=== PATIENT | female | born 1980 | race African-American/Black ===

== ENCOUNTER 2019-12-16 09:04 | Emergency (ER) | payer BC ==
[~2019-12-16] VITALS: Ht 170.2 cm; Wt 120.0 kg
--- NOTE | 2019-12-16 10:37 | PHYS DOC ---
Past Medical History Past Medical History: Hypertension, Other Additional Past Medical Histor: lupus Past Surgical History: Tubal ligation Smoking Status: Current Every Day Smoker Alcohol Use: Occasionally General Adult EDM: Chief Complaint: ELBOW PROBLEM HPI: HPI: 39-year-old female presenting to the emergency department today with right elbow pain. Pain is been present for about 24 to 48 hours. No recent traumatic injury. The pain is a throbbing moderate pain without alleviating factors. ROS is neg for fevers chills. Negative for nausea vomiting. All other review of systems negative. ED course: 39-year-old female presenting with right elbow pain. X-ray obtained. X-ray shows small effusion. CBC shows minimal nonspecific leukocytosis at 12.3. I attempted a joint aspiration however was unable to obtain synovial fluid for analysis. I spoke with our orthopedic surgeon, the patient's pain is primarily at the bursa with some redness around the bursa, most likely diagnosis is bursitis. We will give the patient oral Keflex and arrange short-term follow-up with a sling with orthopedic surgery in a day or 2. Heart Score: Risk Factors: Risk Factors: DM, Current or recent (<one month) smoker, HTN, HLP, family history of CAD, obesity. Risk Scores: Score 0 - 3: 2.5% MACE over next 6 weeks - Discharge Home Score 4 - 6: 20.3% MACE over next 6 weeks - Admit for Clinical Observation Score 7 - 10: 72.7% MACE over next 6 weeks - Early Invasive Strategies Allergies: Allergies: Allergies Coded Allergies Type Severity Reaction Last Updated Verified No Known Drug Allergies 12/16/19 No Physical Exam: PE: Constitutional: Well developed, well nourished, no acute distress, non-toxic appearance. [] HENT: Normocephalic, atraumatic, bilateral external ears normal, oropharynx moist, no oral exudates, nose normal. [] Eyes: PERRLA, EOMI, conjunctiva normal, no discharge. [] Neck: Normal range of motion, no tenderness, supple, no stridor. [] Cardiovascular:Heart rate regular rhythm, no murmur [] Lungs & Thorax: Bilateral breath sounds clear to auscultation [] Abdomen: Bowel sounds normal, soft, no tenderness, no masses, no pulsatile masses. [] Skin: Warm, dry, no erythema, no rash. [] Back: No tenderness, no CVA tenderness. [] Extremities: The patient's right upper extremity has tenderness to palpation along the insertion of the triceps tendon and along the with some redness and warmth at the olecranon bursa pain with range of motion of the elbow joint. Nontender at the head of the radius. Normal neurovascular status with palpable pulse and 2-second cap refill. Normal motor and sensory function of the hand distally. Nontender shoulder proximally and wrist distally. Neurologic: Alert and oriented X 3, normal motor function, normal sensory function, no focal deficits noted. [] Psychologic: Affect normal, judgement normal, mood normal. [] Current Patient Data: Vital Signs: Vital Signs Date Time Temp Pulse Resp B/P (MAP) Pulse Ox O2 Delivery O2 Flow Rate FiO2 12/16/19 09:10 97.6 99 16 164/109 (127) 97 Room Air 97.6 EKG: EKG: [] Radiology/Procedures: Radiology/Procedures: [] Course & Med Decision Making: Course & Med Decision Making Pertinent Labs and Imaging studies reviewed. (See chart for details) [] Dragon Disclaimer: Dragon Disclaimer: This electronic medical record was generated, in whole or in part, using a voice recognition dictation system. Departure Departure Impression: Primary Impression: Elbow pain, right Disposition: 01 HOME, SELF-CARE Condition: STABLE Referrals: NO PCP (PCP) Patient Instructions: Bursitis Scripts Meloxicam (MELOXICAM) 7.5 Mg Tablet 1 TAB PO DAILY for 30 Days, #10 TAB 0 Refills Prov: JUAN MARLEY MD 12/16/19 Cephalexin (KEFLEX) 250 Mg Capsule 1 CAP PO QID, #28 CAP 0 Refills Prov: JUAN MARLEY MD 12/16/19 JUAN MARLEY MD Dec 16, 2019 10:37
--- NOTE | 2019-12-16 10:40 | RAD ---
Right elbow 3 views: Reason for examination: Right elbow pain and limited range of motion. There is no evidence of an acute site of fracture or dislocation. There are however two calcific densities proximal to the tip of the olecranon which may represent joint bodies and measures 6 mm and 2 mm in size. Joint spaces are maintained. There does appear to be a small joint effusion. IMPRESSION: 6 mm and 2 mm calcific densities proximal to the olecranon which may represent joint bodies. Small joint effusion. Electronically signed by: Cathy Boothe MD (12/16/2019 10:37 AM) [id number]
[2019-12-16] MEDS ORDERED: LIDOCAINE 1% Multi-Dose 20 ML VIAL. ONE (10:53)
[2019-12-16] MEDS: LIDOCAINE 1% Multi-Dose 20 ML VIAL. ID ONE (11:00)
[2019-12-16 11:01] LABS: CALCIUM 8.8 mg/dL (8.5-10.1); CREATININE 0.7 mg/dL (0.6-1.0); GFR 111.6; POTASSIUM 3.8 mmol/L (3.5-5.1)
[2019-12-16 11:17] LABS: BASO # 0.1 x10^3/uL (0.0-0.2); BASO % 1 % (0-3); EOS # 0.2 x10^3/uL (0.0-0.7); EOS % 2 % (0-3); HEMATOCRIT 31.4 % (36.0-47.0); HEMOGLOBIN 9.9 g/dL (12.0-15.5); LYMPH # 2.3 x10^3/uL (1.0-4.8); LYMPH % 19 % (24-48); MEAN CORPUSCULAR HEMOGLOBIN 23 pg (25-35); MEAN CORPUSCULAR HGB CONC 32 g/dL (31-37); MEAN CORPUSCULAR VOLUME 74 fL (79-100); MONO % 8 % (0-9); NEUT # 8.7 x10^3/uL (1.8-7.7); NEUT % 71 % (31-73); PLATELET COUNT 371 x10^3/uL (140-400); RED BLOOD COUNT 4.26 x10^6/uL (3.50-5.40); RED CELL DISTRIBUTION WIDTH 19.6 % (11.5-14.5); WHITE BLOOD COUNT 12.3 x10^3/uL (4.0-11.0)
[2019-12-16] MEDS ORDERED: CEPH-263 PO (12:15)
[2019-12-16] MEDS ORDERED: MELO7.5T29 PO (12:15)
[2019-12-16 12:20] VITALS: BP 162/100
== END 2019-12-16 12:32 | disposition home or self-care (01) ==
LOC: ER 09:04
DX: M25.521 Pain in right elbow (principal); I10 Essential (primary) hypertension; F17.200 Nicotine dependence, unspecified, uncomplicated; Z98.51 Tubal ligation status
CPT/HCPCS: 36415; 73080; 80048; 85025; 99284; J3490; A4565

== ENCOUNTER 2021-10-07 12:06 | Emergency (ER) | payer BC ==
[~2021-10-07] VITALS: Ht 170.2 cm; Wt 118.1 kg
[~2021-10-07 12:06] MED LIST: CEPH-263 PO; MELO7.5T29 PO
[2021-10-07 12:13] VITALS: BP 184/85
--- NOTE | 2021-10-07 12:24 | PHYS DOC ---
Past Medical History Past Medical History: Hypertension, Other Additional Past Medical Histor: lupus Past Surgical History: Tubal ligation Smoking Status: Current Every Day Smoker Alcohol Use: Occasionally Adult General Chief Complaint Chief Complaint: ABSCESS HPI [facility] Patient is a 41 year old female who presents with abscess in the right axilla. Has been having symptoms over the last 3 days. Has had prior episodes that required incision and drainage. No fever. Complains of pain in the area worsening swelling in the right axilla. No other complaints today Review of Systems Review of Systems Constitutional: Denies fever or chills Eyes: Denies change HENT: Denies Respiratory: Denies GI: Denies Musculoskeletal: Denies Integument: As documented in HPI Neurologic: Denies Endocrine: Denies All other systems were reviewed and found to be within normal limits, except as documented in this note. Current Medications Current Medications Current Medications Medications (Trade) Dose Ordered Sig/Fantasma Start Time Stop Time Status Last Admin Dose Admin Lidocaine HCl (Lidocaine 1% 20ml Vial) 20 ml 1X ONCE 10/07/21 12:30 10/07/21 12:31 DC 10/07/21 12:30 20 ML Allergies Allergies Allergies Coded Allergies Type Severity Reaction Last Updated Verified No Known Drug Allergies 12/16/19 No Physical Exam Physical Exam Constitutional: Well developed, well nourished, no acute distress, non-toxic appearance. HENT: moist mucous membranes Eyes: PERRLA Neck: Normal range of motion Cardiovascular:Heart rate regular rhythm, no murmur Lungs & Thorax: normal effort Skin: Area of induration and fluctuance with a centralized pustule in the right axilla. Mild overlying erythema of the skin. Area is about 2.5 cm total in diameter Neurologic: Alert and oriented X 3 Psychologic: Affect normal Current Patient Data Vital Signs Vital Signs Date Time Temp Pulse Resp B/P (MAP) Pulse Ox O2 Delivery O2 Flow Rate FiO2 10/07/21 12:13 98.6 114 24 184/85 (118) 99 Room Air 98.6 EKG EKG [] Radiology/Procedures Radiology/Procedures [] Course & Med Decision Making Course & Med Decision Making Pertinent Labs and Imaging studies reviewed. (See chart for details) ED summary: Patient seen in the ER with very small and simple abscess in the right axilla. Incision and drainage was completed. The area was initially cleansed with Betadine. Local anesthesia provided as documented below. Following this, a #11 blade was used to make a single stab incision. There was a moderate amount of thick, purulent material expressed. The wound was then irrigated. Dressing was applied. Stable for discharge home. Placed on Keflex. Recommend to come back to the ER for any new or severely worsening's but do not feel she needs routine wound recheck unless she perceived some complication to occur. These possible complications are discussed and all of her questions were answered prior to discharge home. Dragon Disclaimer Dragon Disclaimer This electronic medical record was generated, in whole or in part, using a voice recognition dictation system. Incision and Drainage Indication: abscess Procedure: The patient was positioned appropriately. Local anesthesia was provided with 1% lidocaine with local injection. 3 mls total were used.. An incision was then made over the apex of the lesion and scant, thick, purulent material was expressed. The drainage cavity was irrigated and left open. No packing placed. Dressing applied. The patient tolerated the procedure well. Complications: none. Departure Departure Impression: Primary Impression: Abscess of right axilla Disposition: 01 HOME / SELF CARE / HOMELESS Condition: GOOD Referrals: NO PCP (PCP) Patient Instructions: Abscess, Care After Scripts Cephalexin (CEPHALEXIN) 500 Mg Tablet 1 TAB PO TID for 7 Days, #21 TAB Prov: NATALIE VILLEGAS DO 10/07/21 NATALIE VILLEGAS DO Oct 07, 2021 12:24
[2021-10-07] MEDS ORDERED: LIDOCAINE 1% Multi-Dose 20 ML VIAL. INJ ONE (12:30)
[2021-10-07] MEDS ORDERED: CEPH500T PO (12:50)
== END 2021-10-07 12:59 | disposition home or self-care (01) ==
LOC: ER 12:06
DX: L02.411 Cutaneous abscess of right axilla (principal); I10 Essential (primary) hypertension; F17.200 Nicotine dependence, unspecified, uncomplicated
CPT/HCPCS: 10060; 99283; J3490